=== PATIENT | female | born 1975 | race Two or more races ===

== ENCOUNTER 2018-12-04 13:37 | Emergency (ER) | payer SELFPAY ==
[~2018-12-04] VITALS: Ht 162.6 cm; Wt 59.0 kg
--- NOTE | 2018-12-04 13:40 | NUR ---
bib family c/o epigastric pain and vomiting x 4 days. Patient a/ox4, breathing even and unlabored, no sob noted, patient changed into gown, attached to the monitor.
[2018-12-04 14:17] LABS: APPEARANCE,URINE Clear (CLEAR); BILIRUBIN,URINE Negative (NEGATIVE); BLOOD, URINE Trace-intact Ery/uL (NEGATIVE); COLOR,URINE Yellow (YELLOW); KETONES,URINE Negative (NEGATIVE); LEUKOCYTE ESTERASE ,URINE Small (NEGATIVE); NITRITE, URINE Negative (NEGATIVE); PH,URINE 6.5 (5.0-8.0); PROTEIN,URINE Negative (NEGATIVE); UGLUCOSE Negative (NEGATIVE); UROBILINOGEN,URINE 0.2 EU/dL (0.2)
[2018-12-04] MEDS ORDERED: KETOROLAC TROMETHAMINE INJ 30 MG/ML VIAL ONE (14:20)
[2018-12-04] MEDS ORDERED: ONDANSETRON HCL/PF 4 MG/2 ML VIAL ONE (14:20)
[2018-12-04] MEDS ORDERED: MORPHINE SULFATE INJ 4 MG/ML DISP.SYRIN ONE (14:20)
[2018-12-04] MEDS ORDERED: CEFTRIAXONE 1GM BAG (ER ONLY) 50 ML IV ONE ×2 (14:20→14:30)
[2018-12-04 14:25] LABS: BASOPHILS % (AUTO) 0.1 % (0.0-2.0); HEMATOCRIT 36 % (33-45); LYMPHOCYTES % (AUTO) 5.5 % (20.0-44.0); MEAN CORPUSCULAR HGB CONC 33 g/dl (31.0-36.0); MEAN CORPUSCULAR VOLUME 88 fL (82-100); MONOCYTES # (AUTO) 1.1 /CMM (0.1-1.30); MONOCYTES % (AUTO) 6.6 % (2.0-12.0); NEUTROPHILS # (AUTO) 15.3 /CMM (1.8-8.9); NEUTROPHILS % (AUTO) 87.8 % (43.0-81.0); PLATELET COUNT (AUTO) 259 /CMM (150-450); WHITE BLOOD COUNT (AUTO) 17.4 K/uL (4.3-11.0)
[2018-12-04 14:27] LABS: BACTERIA,URINE Few /HPF (None Seen); SQUAMOUS EPITHELIAL CELL,UR Few /HPF (None Seen)
[2018-12-04] MEDS ORDERED: MORPHINE SULFATE INJ 2 MG/ML DISP.SYRIN IV ONE (14:30)
[2018-12-04] MEDS ORDERED: ONDANSETRON HCL/PF 4 MG/2 ML VIAL IVP ONE (14:30)
[2018-12-04] MEDS ORDERED: IV NS 0.9% 1,000 ML BAG IV ONE (14:30)
[2018-12-04] MEDS ORDERED: KETOROLAC TROMETHAMINE INJ 30 MG/ML VIAL IV ONE (14:30)
[2018-12-04 14:34] LABS: CALCIUM, SERUM 8.6 mg/dL (8.5-10.1); CREATININE 0.8 mg/dL (0.6-1.3); POTASSIUM 3.6 mmol/L (3.5-5.1)
[2018-12-04 14:40] LABS: ALBUMIN 3.3 g/dL (3.4-5.0); BILIRUBIN,DIRECT 0.1 mg/dL (0.0-0.2); BILIRUBIN,TOTAL 0.3 mg/dL (0.2-1.0); TOTAL PROTEIN, SERUM 7.4 g/dL (6.4-8.2)
--- NOTE | 2018-12-04 16:10 | NUR ---
IV removed. Catheter intact and site benign. Pressure and 4x4 applied to site. No bleeding noted. Patient denies abdominal pain at this time. Needs attended. Patient discharged to home in stable condition. Written and verbal after care instructions given. Patient verbalizes understanding of instruction.
[2018-12-04 16:19] VITALS: BP 95/56
== END 2018-12-04 16:20 | disposition home or self-care (01) ==
LOC: ER 13:39
DX: N12 Tubulo-interstitial nephritis, not specified as acute or chronic (principal)
CPT/HCPCS: 36415; 74176; 80048; 80076; 81001; 83605; 84702; 85025; 87040 ×2; 87077; 87086; 87186; 96365; 96375; 99284; J0696; J1885; J2270; J2405; J7030; 81000-TC

== ENCOUNTER 2021-09-13 09:28 | Emergency (ER) | payer MEDICAID ==
[~2021-09-13] VITALS: Ht 157.5 cm; Wt 58.1 kg
--- NOTE | 2021-09-13 09:54 | NUR ---
BIBFAMILY C/O BODY ACHES, FEVER, COUGH, SORE THROAT, NAUSEA STARTED YESTERDAY, AFEBRILE UPON ARRIVAL AT 98.7, TESTED COVID+ HOME TESTYESTERDAY. AMBULATORY, PLACED ON BED, AAOX4, IN PAIN 01/13
[2021-09-13] MEDS ORDERED: KETOROLAC TROMETHAMINE INJ 30 MG/ML VIAL IM ONE (11:00)
[2021-09-13] MEDS ORDERED: ONDANSETRON 4 MG TAB.RAPDIS SL ONE (11:00)
[2021-09-13] MEDS ORDERED: KETOROLAC TROMETHAMINE 15 MG/ML VIAL ONE (11:14)
[2021-09-13] MEDS ORDERED: ONDANSETRON 4 MG TAB.RAPDIS ONE (11:14)
[2021-09-13] MEDS ORDERED: BENZ-13 PO (11:16)
[2021-09-13] MEDS ORDERED: ONDA4TAB5 PO (11:16)
[2021-09-13] MEDS ORDERED: IBUP-1955 PO (11:16)
--- NOTE | 2021-09-13 11:35 | NUR ---
Patient discharged to home in stable condition. Written and verbal after care instructions given. Patient verbalizes understanding of instruction.
[2021-09-13 11:51] VITALS: BP 110/65
== END 2021-09-13 11:40 | disposition home or self-care (01) ==
LOC: ER 09:32
DX: U07.1 COVID-19 (principal); R05.9 Cough, unspecified; J02.9 Acute pharyngitis, unspecified; R11.0 Nausea; R51.9 Headache, unspecified
CPT/HCPCS: 96372; 99283; J1885; Q0162

== ENCOUNTER 2024-10-05 12:31 | Inpatient (IN) | payer MEDICAID, OTHER ==
[~2024-10-05] VITALS: Ht 157.5 cm; Wt 63.0 kg
[~2024-10-05 12:31] MED LIST: BENZ-13 PO; IBUP-1955 PO; ONDA4TAB5 PO
[2024-10-05] MEDS: ONDANSETRON HCL/PF 4 MG/2 ML VIAL IVP ONE (13:00)
[2024-10-05] MEDS: FAMOTIDINE/PF INJ 20 MG/2 ML VIAL IV ONE (13:00)
[2024-10-05 13:01] LABS: PLATELET COUNT (AUTO) 348 K/uL (150-450); RED BLOOD CELL COUNT(AUTO) 4.84 MIL/uL (4.0-5.2); RED CELL DISTRIBUTION WIDTH 14.9 % (11.5-15.0); WHITE BLOOD COUNT (AUTO) 15.2 K/uL (4.3-11.0)
[2024-10-05 13:08] LABS: CALCIUM, SERUM 8.9 mg/dL (8.5-10.1); CREATININE 0.7 mg/dL (0.6-1.3); SODIUM SERUM 139.0 mmol/L (136-145); UREA NITROGEN, BLOOD 16.0 mg/dL (7-18)
[2024-10-05 13:14] LABS: ASPARTATE AMINOTRANSFERASE 16.0 U/L (15-37); TOTAL PROTEIN, SERUM 7.9 g/dL (6.4-8.2)
[2024-10-05 13:15] LABS: APPEARANCE,URINE CLEAR (CLEAR); UGLUCOSE NEGATIVE (NEGATIVE)
[2024-10-05 13:16] LABS: BLOOD, URINE TRACE Ery/uL (NEGATIVE); LEUKOCYTE ESTERASE ,URINE NEGATIVE (NEGATIVE); NITRITE, URINE NEGATIVE (NEGATIVE); PREGNANCY TEST URINE QUAL NEGATIVE (NEGATIVE)
[2024-10-05 13:26] LABS: ADD URINE CULTURE NO; SQUAMOUS EPITHELIAL CELL,UR Many /HPF (None Seen)
[2024-10-05] MEDS: PIPERACILLIN /TAZOBACTAM 3.375 G in IV D5W 50 ML IV ONE (13:30)
[2024-10-05] MEDS: IV NS 0.9% 1,000 ML BAG IV ONE ×2 (13:30→13:35)
[2024-10-05] MEDS: MAG HYDROX/AL HYDROX/SIMETH 30 ML UDC PO ONE (13:34)
[2024-10-05] MEDS: LIDOCAINE VISCOUS 2% UD 15 ML UDC MM ONE (13:34)
[2024-10-05] MEDS ORDERED: PIPERACI/TAZO 3.375GM/D5W 50ML PB IV ONE (13:36)
[2024-10-05] MEDS ORDERED: FAMOTIDINE/PF INJ 20 MG/2 ML VIAL IV ONE (13:37)
[2024-10-05] MEDS ORDERED: MORPHINE SULFATE INJ 4 MG/ML DISP.SYRIN ONE (13:39)
[2024-10-05] MEDS: MORPHINE SULFATE INJ 2 MG/ML DISP.SYRIN IV ONE (13:48)
[2024-10-05 14:11] LABS: INR 0.96 (0.91-1.10)
[2024-10-05] MEDS ORDERED: MORPHINE SULFATE INJ 4 MG/ML DISP.SYRIN IV PRN (16:30)
[2024-10-05] MEDS ORDERED: ONDANSETRON HCL/PF 4 MG/2 ML VIAL IVP PRN (16:30)
[2024-10-05] MEDS ORDERED: MAG HYDROX/AL HYDROX/SIMETH 30 ML UDC PO PRN (16:30)
[2024-10-05] MEDS ORDERED: DOSING PER PHARMACY-ZOSYN IV 1 EA EA XX PRN (16:30)
[2024-10-05] MEDS ORDERED: Z GUARD REMEDY 4 OZ OINT TP PRN (16:30)
[2024-10-05] MEDS: IV NS 0.9% 1,000 ML IV PRN (16:36)
[2024-10-05 16:44] VITALS: BP 103/71; TEMP 98.1; O2SAT 99
[2024-10-05 16:53] LABS: INR 1.0 (0.91-1.10)
[2024-10-05] MEDS: PIPERACILLIN /TAZOBACTAM 3.375 G in IV D5W 50 ML IV SCH (17:34)
[2024-10-05] MEDS ORDERED: PIPERACILLIN /TAZOBACTAM 3.375 G in IV D5W 50 ML IV SCH (18:00)
[2024-10-05 20:00] VITALS: BP 93/61; TEMP 98.2; O2SAT 98
[2024-10-05] MEDS ORDERED: LIDOCAINE 1%-EPI 1:100,000 20 ML VIAL ONE (21:24)
[2024-10-05] MEDS ORDERED: BUPIVACAINE 0.5 % PF 150 MG/30 ML VIAL ONE (21:24)
[2024-10-05] MEDS ORDERED: ROCURONIUM BROMIDE 50 MG/5 ML ONE (21:40)
[2024-10-05] MEDS ORDERED: MIDAZOLAM HCL 2 MG/2ML VIAL ONE (21:40)
[2024-10-05] MEDS ORDERED: FENTANYL PF 100MCG/2ML AMPUL ONE (21:40)
[2024-10-05] MEDS ORDERED: VASOPRESSIN INJ 20 UNIT/ML VIAL ONE (21:40)
[2024-10-05] MEDS ORDERED: ANESTHESIA TRAY IN PYXIS 1 EA TRAY MC ONE (22:44)
[2024-10-05 23:30] VITALS: BP 103/68; TEMP 97.7; O2SAT 100
[2024-10-05 23:45] VITALS: BP 105/68; TEMP 97.7; O2SAT 100
[2024-10-06] VITALS: BP 102/64; TEMP 97.7; O2SAT 100
[2024-10-06 00:34] VITALS: BP 102/64; O2SAT 98
[2024-10-06 06:58] LABS: PLATELET COUNT (AUTO) 299 K/uL (150-450); RED BLOOD CELL COUNT(AUTO) 4.27 MIL/uL (4.0-5.2); RED CELL DISTRIBUTION WIDTH 14.8 % (11.5-15.0); WHITE BLOOD COUNT (AUTO) 10.8 K/uL (4.3-11.0)
[2024-10-06 07:27] LABS: CREATININE 0.6 mg/dL (0.6-1.3); SODIUM SERUM 143.0 mmol/L (136-145); UREA NITROGEN, BLOOD 8.0 mg/dL (7-18)
[2024-10-06 07:44] LABS: CALCIUM, SERUM 7.7 mg/dL (8.5-10.1); PHOSPHORUS 3.3 mg/dL (2.5-4.9)
[2024-10-06] MEDS: ACETAMINOPHEN 325 MG TABLET PO PRN (08:19)
[2024-10-06 09:18] VITALS: TEMP 98.1
[2024-10-06] MEDS: MAGNESIUM HYDROXIDE 30 ML UDC PO PRN (09:53)
[2024-10-06] MEDS: PIPERACILLIN /TAZOBACTAM 3.375 G in IV D5W 100 ML IV SCH (12:45)
[2024-10-06] MEDS ORDERED: SIMETHICONE 80 MG TAB.CHEW PO PRN (17:00)
== END 2024-10-06 17:06 | disposition home or self-care (01) | DRG 233 ==
LOC: ER 12:35 → MED 15:08
PROVIDERS: ADMIT Internal Medicine; ATTEND Internal Medicine
PROC: 3E0T3BZ Introduction of Anesthetic Agent into Peripheral Nerves and Plexi, Percutaneous Approach (ICD-10-PCS; 2024-10-05)
PROC: 0DTJ4ZZ Resection of Appendix, Percutaneous Endoscopic Approach (ICD-10-PCS; principal; 2024-10-05 21:30)
DX: K35.33 Acute appendicitis with perforation, localized peritonitis, and gangrene, with abscess (principal); D25.9 Leiomyoma of uterus, unspecified; N83.201 Unspecified ovarian cyst, right side; N83.202 Unspecified ovarian cyst, left side
CPT/HCPCS: 36415; 71045-TC; 80048-TC; 80076-TC; 81001; 83605-TC; 83690-TC; 83735-TC; 84100-TC; 84703-TC; 85025-TC; 85610-TC; 85730-TC; 86850-TC; 87040-TC; 87081-TC; A4223; G0378; J0690; J1100; J1308; J2250; J2270; J2405; J2543; J2704; J3010; J3490; J7030; J7050; J7060